=== PATIENT | female | born 1985 | race Caucasian/White ===

== ENCOUNTER 2021-01-22 04:05 | Inpatient (IN) | payer BC ==
[~2021-01-22] VITALS: Ht 157.6 cm; Wt 69.5 kg
[2021-01-22] VITALS (51 sets, daily range): BP systolic 95–133; BP diastolic 51–87; PULSE 60–118; TEMP 97.6–98.7
--- NOTE | 2021-01-22 04:10 | NUR ---
0410- PATIENT AND SPOUSE AMBULATORY TO THE UNIT. PATIENT ORIENTATED TO ROOM AND CHANGED INTO CLEAN GOWN. PATIENT REPORTS GFM, NO LOF OR BLEEDING AND CONTRACTIONS ABOUT 5 MINUTES APART SINCE MIDNIGHT. PATIENT IS A PATIENT OF DR. DANIELS AT 38.4. 0415- EFM AND TOCO ON AND TRACING. VITALS TAKEN, ASSESSMENT COMPLETED. PLAN OF CARE DISCUSSED FOR THE EVENING. 0420- SVE 0/50/-3. PATIENT DENIES NEEDS AND CALL LIGHT IS WITHIN REACH.
[2021-01-22] MEDS ORDERED: LEXAPRO 10MG10 MG PO (04:34)
[2021-01-22] MEDS ORDERED: PRENATAL TABLET PO (04:34)
--- NOTE | 2021-01-22 06:20 | NUR ---
Patient calls out. This nurse went in her room. States my water just broke. Moderate amount of meconium fluid noted. Ambulates to the bathroom to clean up. Back to bed, monitor [id number] Dr. Jackson notified of rupture of membranes. Orders to admit.
--- NOTE | 2021-01-22 07:30 | NUR ---
Sits up for epidural. Kali here, visits with patient. 0794 Catheter placed by anesthesia Kali laurent. 0763 Medication given by anesthesia.
[2021-01-22 07:36] LABS: BASO % 0.2 % (0.0-2.0); EOS % 0.2 % (0-4.0); GRAN # 13.6 (1.4-6.5); GRAN % 82.9 % (42.2-75.2); HEMATOCRIT 40.9 % (37.0-47.0); HEMOGLOBIN 14.3 g/dl (12.5-16.0); LYMPH # 1.5 (1.2-3.4); LYMPH % 9.4 % (20.0-51.0); MEAN CELL VOLUME 87 fl (80.0-100.0); MEAN CORPUSCULAR HEMOGLOBIN 30 pg (27.0-31.0); MEAN CORPUSCULAR HGB CONC 35 g/dl (33.0-37.0); MEAN PLATELET VOLUME 11.1 fl (7.4-10.4); MONO % 6.1 % (1.7-9.3); PLATELET COUNT 234 K/mm3 (130-400); RED BLOOD COUNT 4.73 M/mm3 (4.10-5.30); REDCELL DISTRIBUTION WIDTH-CV 13.1 % (11.5-14.5)
--- NOTE | 2021-01-22 07:45 | NUR ---
Lies down after epidural. States feeling better.
--- NOTE | 2021-01-22 08:00 | NUR ---
Rests in bed, alert. States feeling better. 0808 heart tones down in the 70s-80s. Repositioned to right side. Vag exam done. Dilated to five. Moderate amount of bleeding noted. Positioned to knee chest. O28L. Dr. Mendez here, states to put patient back on her back. Vag check done by Dr. Mendez. Blood clot noted after check. Blood pressure at 81/44/ 0817 Ephedrine 10 ccs given by Kelley waldrop Almanza catheter placed per sterile technique.
--- NOTE | 2021-01-22 10:00 | NUR ---
Rests in bed, alert. Denies any needs at this time.
--- NOTE | 2021-01-22 11:00 | NUR ---
Rests in bed, alert. Denies any discomfort or pain at this time. 1105 Vag exam done, dilated to 7-8, 90% effaced, 0 station. 1110 Pen g 2.5 million units iv given as ordered and per policy.
--- NOTE | 2021-01-22 11:15 | NUR ---
Pen g. 2.5 million units iv given as ordered and per protocol.
--- NOTE | 2021-01-22 11:45 | NUR ---
Rests in bed, alert. States had a little nap.
--- NOTE | 2021-01-22 12:15 | NUR ---
heart tones down in the 70s-90s for 50-60 seconds. Back up to 120s Repostioned left to right back left. O28L, fluid bolus given. 1225 heart rate back up to 110s. Dr. Mendez notified of heart rate down in the 70s-90s at 1236 after she came out of her .
--- NOTE | 2021-01-22 12:30 | NUR ---
Rests in bed, alert. Family at bedside. heart tones 136.
--- NOTE | 2021-01-22 13:15 | NUR ---
Roles here, vag exam done. Reports dilated 8-9.
--- NOTE | 2021-01-22 14:00 | NUR ---
Dr. Mendez here, visits with patient. Vag exam done, reports anterior lip noted. Moderate amount of red color drainage noted to pad. scalp electrode placed by Dr. Mendez.
--- NOTE | 2021-01-22 15:00 | NUR ---
Rests in bed, alert. 1510 Pen g 2.5 million units iv given as ordered and per order. Gown and pads changed and shruit-care given.
--- NOTE | 2021-01-22 15:45 | NUR ---
Patient complete. Epidural pump back on per Kali Mendez called and updated on patient complete.
--- NOTE | 2021-01-22 16:10 | NUR ---
Pushes with contractions. heart rate down to 60-70. Knee chest position done. Dr. Mendez notified of heart tones in the seventys. States will be there. 1624 Dr. Mendez here, vists with patient about section. 1627 section called. Prepped for . 1634 To o.r. with patient.
--- NOTE | 2021-01-22 17:30 | NUR ---
To pacu via bed with this nurse and anethesia. Hooked up to monitors. Denies any pain at this time.. Spouse at side.
--- NOTE | 2021-01-22 17:45 | NUR ---
Roles here, checks on patient.
--- NOTE | 2021-01-22 18:00 | NUR ---
Rests in bed, alert. Breastfeeds baby.
[2021-01-23 01:08] VITALS: BP 110/54; PULSE 84; TEMP 98.1
--- NOTE | 2021-01-23 02:53 | NUR ---
PATIENT UP WITH ASSIST X1. PATIENT TOLERATED WELL. PERIPADS AND UNDERWEAR APPLIED. BED LINENS CHANGED. PATIENT VOIDED 300 ML OF URINE. NO CLOTS NOTED. PERICARE TAUGHT AND PERFORMED. PATIENT VERBALIZED UNDERSTANDING. WILL CONTINUE TO MONITOR.
[2021-01-23 05:32] VITALS: BP 95/60; PULSE 69; TEMP 98.1
[2021-01-23 06:50] LABS: HEMATOCRIT 33.2 % (37.0-47.0)
[2021-01-23 07:43] VITALS: BP 96/54; PULSE 62; TEMP 98
[2021-01-23 12:00] VITALS: BP 100/66; PULSE 60; TEMP 98
--- NOTE | 2021-01-23 12:13 | NUR ---
Initial visit; Parents thanked Networking Technician for offering congratulations and God's blessings for the of their son. Networking Technician thanked family for choosing [facility].
[2021-01-23 16:00] VITALS: BP 90/55; PULSE 50; TEMP 98
[2021-01-23 20:45] VITALS: BP 87/55; PULSE 87; TEMP 97.5
[2021-01-24 09:05] VITALS: BP 92/55; PULSE 70; TEMP 97.8
[2021-01-24] MEDS ORDERED: PERCOCET 325 MG1 TA2 PO (13:32)
[2021-01-24] MEDS ORDERED: IBU600 MG PO (13:32)
[2021-01-24 16:30] VITALS: BP 107/56; PULSE 88; TEMP 98.3
== END 2021-01-24 17:55 | disposition home or self-care (01) | DRG 788 ==
LOC: LDRO 04:05 → LDR 06:48 → OB 18:05
PROVIDERS: Obstetrics & Gynecology; Student in an Organized Health Care Education/Training Program; ADMIT Obstetrics & Gynecology
PROC: 10D00Z1 Extraction of Products of Conception, Low, Open Approach (ICD-10-PCS; principal; 2021-01-22)
DX: O77.0 Labor and delivery complicated by meconium in amniotic fluid (principal); Z3A.38 38 weeks gestation of pregnancy; Z37.0 Single live birth; O76 Abnormality in fetal heart rate and rhythm complicating labor and delivery
CPT/HCPCS: J0690; J1100; J1885; J2400; J2405; J2540; J2590; J7120